=== PATIENT | female | born 1980 | race American Indian/Alaskan Native ===

== ENCOUNTER 2021-03-30 07:43 | Emergency (ER) | payer SELFPAY ==
[2021-03-30 08:24] VITALS: BP 129/84
[2021-03-30 09:07] LABS: Bilirubin,Urine NEG (Negative); Blood,Urine NEG (Negative); Color,Urine Yellow (Yellow); Protein,Urine <15 mg/dL mg/dL (Negative); Urobilinogen,Urine < 2.0 mg/dL (<2.0)
[2021-03-30 09:55] LABS: HCG Qualitative,Urine Negative (Negative)
--- NOTE | 2021-03-30 11:10 | Emergency Department Report ---
ED Female HPI - General Chief complaint: Vaginal Bleeding Stated complaint: ABD PAIN, BACK PAIN Time Seen by Provider: 03/30/21 10:45 Source: patient Mode of arrival: Ambulatory Limitations: No Limitations - History of Present Illness Initial comments: Patient is a 40-year-old female presents emergency room with complaints of lower abdominal discomfort during the last month. She states the pain radiates to her back. She has a history of endometriosis and uterine fibroids. She states that she has had bleeding four times this month. she states that she is not currently bleeding and has not had bleeding in 1 week. Patient states that she has a history of anemia and has not been taking her iron supplements and has had to be transfused in the past. Patient states that she relocated from [place] and has not set up primary care or WATER QUALITY TECHNICIAN. She states that she has not seen her previous WATER QUALITY TECHNICIAN in approximately a year. She is not currently on any hormones or Lupron. She denies any fever, nausea, vomiting, diarrhea, urinary symptoms, abnormal vaginal discharge. She also has a history of diabetes, hypertension, seizures. Allergy to penicillin and butorphanol. - Related Data Previous Rx's Medication Instructions Recorded Last Taken Type Acetaminophen/Codeine [Tylenol 1 tab PO Q6H PRN #10 tab 03/30/21 Unknown Rx /Codeine # 3 tab] Naproxen [EC-Naprosyn] 500 mg PO BID PRN #20 tablet. 03/30/21 Unknown Rx methOCARBAMOL [Robaxin TAB] 500 mg PO BID PRN #20 tab 03/30/21 Unknown Rx Allergies Allergy/AdvReac Type Severity Reaction Status Date / Time butorphanol [From Stadol] Allergy Anaphylaxis Verified 03/30/21 08:20 Penicillins Allergy Hives Verified 03/30/21 08:21 ED Review of Systems ROS: Stated complaint: ABD PAIN, BACK PAIN Other details as noted in HPI Comment: All other systems reviewed and negative ED Past Medical Hx - Past Medical History Previous Medical History?: Yes Hx Hypertension: Yes Hx Diabetes: Yes Hx Seizures: Yes Additional medical history: Endometriosis - Social History Smoking Status: Current Every Day Smoker Substance Use Type: None - Medications Home Medications: Home Medications Medication Instructions Recorded Confirmed Last Taken Type Acetaminophen/Codeine [Tylenol 1 tab PO Q6H PRN #10 tab 03/30/21 Unknown Rx /Codeine # 3 tab] Naproxen [EC-Naprosyn] 500 mg PO BID PRN #20 tablet. 03/30/21 Unknown Rx methOCARBAMOL [Robaxin TAB] 500 mg PO BID PRN #20 tab 03/30/21 Unknown Rx ED Physical Exam - General Limitations: No Limitations General appearance: alert, in no apparent distress - Head Head exam: Present: atraumatic, normocephalic - Eye Eye exam: Present: normal appearance - ENT ENT exam: Present: mucous membranes moist - Respiratory Respiratory exam: Present: normal lung sounds bilaterally. Absent: respiratory distress, wheezes, rales, rhonchi, stridor, chest wall tenderness, accessory muscle use, decreased breath sounds, prolonged expiratory - Cardiovascular Cardiovascular Exam: Present: regular rate, normal rhythm, normal heart sounds. Absent: systolic murmur, diastolic murmur, rubs, gallop - GI/Abdominal GI/Abdominal exam: Present: soft, tenderness (mild suprapubic ), normal bowel sounds. Absent: distended, guarding, rebound, rigid - Neurological Exam Neurological exam: Present: alert, oriented X3 - Psychiatric Psychiatric exam: Present: normal affect, normal mood - Skin Skin exam: Present: warm, dry, intact ED Course Vital Signs 03/30/21 08:24 Temperature 98.0 F Pulse Rate 81 Respiratory 16 Rate Blood Pressure 129/84 [Right] O2 Sat by Pulse 98 Oximetry ED Medical Decision Making - Lab Data Result diagrams: 03/30/21 11:11 03/30/21 11:11 Lab Results 03/30/21 03/30/21 03/30/21 Range/Units 11:11 11:11 11:11 WBC 11.3 H (4.5-11.0) K/mm3 RBC 4.45 (3.65-5.03) M/mm3 Hgb 11.0 (10.1-14.3) gm/dl Hct 35.0 (30.3-42.9) % MCV 79 (79-97) fl MCH 25 L (28-32) pg MCHC 32 (30-34) % RDW 18.4 H (13.2-15.2) % Plt Count 243 (140-440) K/mm3 Lymph % (Auto) 17.3 (13.4-35.0) % [place] % (Auto) 6.4 (0.0-7.3) % Eos % (Auto) 1.6 (0.0-4.3) % Baso % (Auto) 0.4 (0.0-1.8) % Lymph # (Auto) 2.0 (1.2-5.4) K/mm3 [place] # (Auto) 0.7 (0.0-0.8) K/mm3 Eos # (Auto) 0.2 (0.0-0.4) K/mm3 Baso # (Auto) 0.0 (0.0-0.1) K/mm3 Seg Neutrophils % 74.3 H (40.0-70.0) % Seg Neutrophils # 8.4 H (1.8-7.7) K/mm3 Sodium 133 L (137-145) mmol/L Potassium 4.4 (3.6-5.0) mmol/L Chloride 101.1 (98-107) mmol/L Carbon Dioxide 24 (22-30) mmol/L Anion Gap 12 mmol/L BUN 14 (7-17) mg/dL Creatinine 0.8 (0.6-1.2) mg/dL Estimated GFR > 60 ml/min BUN/Creatinine Ratio 18 % Glucose 93 (65-100) mg/dL Calcium 8.9 (8.4-10.2) mg/dL Total Bilirubin 0.20 (0.1-1.2) mg/dL AST 15 (5-40) units/L ALT 17 (7-56) units/L Alkaline Phosphatase 87 (35-129) units/L Total Protein 7.0 (6.3-8.2) g/dL Albumin 4.1 (3.9-5) g/dL Albumin/Globulin Ratio 1.4 % HCG, Qual Negative (Negative) Urine Color (Yellow) Urine Turbidity (Clear) Urine pH (5.0-7.0) Ur Specific [place] (1.003-1.030) Urine Protein (Negative) mg/dL Urine Glucose (UA) (Negative) mg/dL Urine Ketones (Negative) mg/dL Urine Blood (Negative) Urine Nitrite (Negative) Urine Bilirubin (Negative) Urine Urobilinogen (<2.0) mg/dL Ur Leukocyte Esterase (Negative) Urine WBC (Auto) (0.0-6.0) /HPF Urine RBC (Auto) (0.0-6.0) /HPF U Epithel Cells (Auto) (0-13.0) /HPF Urine HCG, Qual (Negative) 03/30/21 Range/Units Unknown WBC (4.5-11.0) K/mm3 RBC (3.65-5.03) M/mm3 Hgb (10.1-14.3) gm/dl Hct (30.3-42.9) % MCV (79-97) fl MCH (28-32) pg MCHC (30-34) % RDW (13.2-15.2) % Plt Count (140-440) K/mm3 Lymph % (Auto) (13.4-35.0) % [place] % (Auto) (0.0-7.3) % Eos % (Auto) (0.0-4.3) % Baso % (Auto) (0.0-1.8) % Lymph # (Auto) (1.2-5.4) K/mm3 [place] # (Auto) (0.0-0.8) K/mm3 Eos # (Auto) (0.0-0.4) K/mm3 Baso # (Auto) (0.0-0.1) K/mm3 Seg Neutrophils % (40.0-70.0) % Seg Neutrophils # (1.8-7.7) K/mm3 Sodium (137-145) mmol/L Potassium (3.6-5.0) mmol/L Chloride (98-107) mmol/L Carbon Dioxide (22-30) mmol/L Anion Gap mmol/L BUN (7-17) mg/dL Creatinine (0.6-1.2) mg/dL Estimated GFR ml/min BUN/Creatinine Ratio % Glucose (65-100) mg/dL Calcium (8.4-10.2) mg/dL Total Bilirubin (0.1-1.2) mg/dL AST (5-40) units/L ALT (7-56) units/L Alkaline Phosphatase (35-129) units/L Total Protein (6.3-8.2) g/dL Albumin (3.9-5) g/dL Albumin/Globulin Ratio % HCG, Qual (Negative) Urine Color Yellow (Yellow) Urine Turbidity Clear (Clear) Urine pH 5.0 (5.0-7.0) Ur Specific [place] 1.023 (1.003-1.030) Urine Protein <15 mg/dl (Negative) mg/dL Urine Glucose (UA) Neg (Negative) mg/dL Urine Ketones Neg (Negative) mg/dL Urine Blood Neg (Negative) Urine Nitrite Neg (Negative) Urine Bilirubin Neg (Negative) Urine Urobilinogen < 2.0 (<2.0) mg/dL Ur Leukocyte Esterase Tr (Negative) Urine WBC (Auto) 5.0 (0.0-6.0) /HPF Urine RBC (Auto) 2.0 (0.0-6.0) /HPF U Epithel Cells (Auto) 1.0 (0-13.0) /HPF Urine HCG, Qual Negative (Negative) - Medical Decision Making Patient is a 40-year-old female presents emergency room with complaints of lower abdominal discomfort during the last month. She states the pain radiates to her back. She has a history of endometriosis and uterine fibroids. She states that she has had bleeding four times this month. she states that she is not currently bleeding and has not had bleeding in 1 week. Patient states that she has a history of anemia and has not been taking her iron supplements and has had to be transfused in the past. Patient states that she relocated from [place] and has not set up primary care or WATER QUALITY TECHNICIAN. She states that she has not seen her previous WATER QUALITY TECHNICIAN in approximately a year. She is not currently on any hormones or Lupron. She denies any fever, nausea, vomiting, diarrhea, urinary s ymptoms, abnormal vaginal discharge. She also has a history of diabetes, hypertension, seizures. Allergy to penicillin and butorphanol. Vitals are normal. On exam patient has mild suprapubic abdominal tenderness palpation, no guarding, no rebound, no rigidity, normal bowel sounds, no peritoneal signs. Labs are stable. H&H is normal. hCG is negative. UA is within normal limits. Patient given prescription for medication. Patient will be referred to outpatient primary care and WATER QUALITY TECHNICIAN. Discussed the importance of follow-up regarding her abnormal menstrual cycles. advised pt Please take medication as prescribed. Follow-up with a primary care doctor. Follow-up with WATER QUALITY TECHNICIAN. Return to emergency room for any new or symptoms. Critical care attestation.: If time is entered above; I have spent that time in minutes in the direct care of this critically ill patient, excluding procedure time. ED Disposition Clinical Impression: Abnormal menstrual cycle Abdominal pain Qualifiers: Abdominal location: lower abdomen, unspecified Qualified Code(s): R10.30 - Lower abdominal pain, unspecified Back pain Qualifiers: Back pain location: low back pain Chronicity: acute Back pain laterality: bilateral Sciatica presence: without sciatica Qualified Code(s): M54.5 - Low back pain Disposition: TO HOME OR SELFCARE Is pt being admited?: No Does the pt Need Aspirin: No Condition: Stable Instructions: Dysfunctional Uterine Bleeding Additional Instructions: Please take medication as prescribed. Follow-up with a primary care doctor. Follow-up with WATER QUALITY TECHNICIAN. Return to emergency room for any new or symptoms. Prescriptions: Naproxen [EC-Naprosyn] 500 mg PO BID PRN #20 tablet. PRN Reason: Pain, Moderate (4-6) methOCARBAMOL [Robaxin TAB] 500 mg PO BID PRN #20 tab PRN Reason: muscle spasm/pain Acetaminophen/Codeine [Tylenol /Codeine # 3 tab] 1 tab PO Q6H PRN #10 tab PRN Reason: Pain , Severe (7-10) Referrals: [facility] [Provider Group] - 2-3 Days PAUL ALVAREZ MD [Staff Physician] - 2-3 Days Time of Disposition: 12:01 Print Language: LATVIAN
[2021-03-30 11:44] LABS: Basophils % (Auto) 0.4 % (0.0-1.8); Eosinophils # (Auto) 0.2 K/mm3 (0.0-0.4); Eosinophils % (Auto) 1.6 % (0.0-4.3); Lymphocytes % (Auto) 17.3 % (13.4-35.0); Mean Corpuscular HGB Conc 32 % (30-34); Mean Corpuscular Volume 79 fl (79-97); Monocytes # (Auto) 0.7 K/mm3 (0.0-0.8); Monocytes % (Auto) 6.4 % (0.0-7.3); Platelet Count 243 K/mm3 (140-440); Red Blood Count 4.45 M/mm3 (3.65-5.03); Red Cell Distribution Width 18.4 % (13.2-15.2)
[2021-03-30 12:00] LABS: Alanine Aminotransferase 17 units/L (7-56); Albumin 4.1 g/dL (3.9-5); BUN/Creatinine Ratio 18; Blood Urea Nitrogen 14 mg/dL (7-17); Calcium 8.9 mg/dL (8.4-10.2); Hemolysis Index 1
== END 2021-03-30 12:18 | disposition home or self-care (01) ==
LOC: ED 07:43
DX: N92.1 Excessive and frequent menstruation with irregular cycle (principal); M54.5 Low back pain; I10 Essential (primary) hypertension; E11.9 Type 2 diabetes mellitus without complications; F17.200 Nicotine dependence, unspecified, uncomplicated; Z86.69 Personal history of other diseases of the nervous system and sense organs; Z88.0 Allergy status to penicillin; Z88.8 Allergy status to other drugs, medicaments and biological substances; Z79.899 Other long term (current) drug therapy
CPT/HCPCS: 36415; 80053; 81001; 81025; 84703; 85025; 99283

== ENCOUNTER 2022-03-29 01:36 | Emergency (ER) | payer MEDICAID, OTHER ==
--- NOTE | 2022-03-29 11:30 | Emergency Department Report ---
ED General Adult HPI - General Chief complaint: Chest Pain Stated complaint: HIGH BP/CHEST PAIN Time Seen by Provider: 03/29/22 11:02 Source: patient Mode of arrival: Ambulatory Limitations: No Limitations - History of Present Illness Initial comments: 41 yo F with seizure, hypertension, asthma and endometriosis who presents with chest palpitation, chest pressure and mild headache that started this morning while at work. Patient worked overnight. Patient also reported that she ran out of her medication about a week ago. She moved down here from [place] and trying to establish with primary doctor. She mentioned that her Medicaid has not been transferred to [place] yet. Patient denies any other modifying or associated factors. Severity scale (0 -10): 9 - Related Data Previous Rx's Medication Instructions Recorded Last Taken Type Acetaminophen/Codeine [Tylenol 1 tab PO Q6H PRN #10 tab 03/30/21 Unknown Rx /Codeine # 3 tab] Naproxen [EC-Naprosyn] 500 mg PO BID PRN #20 tablet. 03/30/21 Unknown Rx methOCARBAMOL [Robaxin TAB] 500 mg PO BID PRN #20 tab 03/30/21 Unknown Rx Potassium Chloride [K-Dur] 20 meq PO DAILY 5 Days #5 tablet 03/29/22 Unknown Rx amLODIPine 10 mg PO DAILY 30 Days #30 tab 03/29/22 Unknown Rx levETIRAcetam [Keppra TAB] 500 mg PO DAILY 30 Days #30 tablet 03/29/22 Unknown Rx Allergies Allergy/AdvReac Type Severity Reaction Status Date / Time butorphanol [From Stadol] Allergy Anaphylaxis Verified 03/30/21 08:20 Penicillins Allergy Hives Verified 03/30/21 08:21 ED Review of Systems ROS: Stated complaint: HIGH BP/CHEST PAIN Other details as noted in HPI Comment: All other systems reviewed and negative Cardiovascular: chest pain, palpitations ED Past Medical Hx - Past Medical History Hx Hypertension: Yes Hx Diabetes: Yes Hx Seizures: Yes Additional medical history: Endometriosis - Social History Smoking Status: Unknown if ever smoked - Medications Home Medications: Home Medications Medication Instructions Recorded Confirmed Last Taken Type Acetaminophen/Codeine [Tylenol 1 tab PO Q6H PRN #10 tab 03/30/21 Unknown Rx /Codeine # 3 tab] Naproxen [EC-Naprosyn] 500 mg PO BID PRN #20 tablet. 03/30/21 Unknown Rx methOCARBAMOL [Robaxin TAB] 500 mg PO BID PRN #20 tab 03/30/21 Unknown Rx Potassium Chloride [K-Dur] 20 meq PO DAILY 5 Days #5 tablet 03/29/22 Unknown Rx amLODIPine 10 mg PO DAILY 30 Days #30 tab 03/29/22 Unknown Rx levETIRAcetam [Keppra TAB] 500 mg PO DAILY 30 Days #30 tablet 03/29/22 Unknown Rx ED Physical Exam - General Limitations: No Limitations General appearance: alert, in no apparent distress - Head Head exam: Present: normal inspection - Eye Eye exam: Present: normal appearance Pupils: Present: normal accommodation - ENT ENT exam: Present: normal exam, normal orophraynx, mucous membranes moist - Neck Neck exam: Present: normal inspection, full ROM. Absent: tenderness - Respiratory Respiratory exam: Present: normal lung sounds bilaterally. Absent: respiratory distress, accessory muscle use - Cardiovascular Cardiovascular Exam: Present: regular rate, normal rhythm, normal heart sounds - GI/Abdominal GI/Abdominal exam: Present: soft, normal bowel sounds. Absent: distended, tenderness - Extremities Exam Extremities exam: Present: normal inspection - Back Exam Back exam: Present: normal inspection. Absent: tenderness - Neurological Exam Neurological exam: Present: alert, oriented X3 - Psychiatric Psychiatric exam: Present: normal affect, normal mood - Skin Skin exam: Present: warm, intact ED Course Vital Signs 03/29/22 03/29/22 03/29/22 02:26 09:35 09:45 Temperature 97.9 F Pulse Rate 68 67 58 L Respiratory 16 18 23 Rate Blood Pressure 172/108 181/103 Blood Pressure 172/108 181/103 [Right] O2 Sat by Pulse 100 100 100 Oximetry 03/29/22 03/29/22 03/29/22 10:01 10:15 10:31 Temperature Pulse Rate 62 60 66 Respiratory 10 L 10 L 16 Rate Blood Pressure 180/107 161/70 154/104 Blood Pressure [Right] O2 Sat by Pulse 100 100 100 Oximetry 03/29/22 03/29/22 03/29/22 10:45 11:01 11:15 Temperature Pulse Rate 56 L 70 65 Respiratory 9 L 14 15 Rate Blood Pressure 168/92 172/101 152/81 Blood Pressure [Right] O2 Sat by Pulse 100 100 100 Oximetry 03/29/22 03/29/22 03/29/22 11:30 11:59 12:01 Temperature Pulse Rate 69 74 69 Respiratory 13 14 Rate Blood Pressure 175/95 175/95 172/103 Blood Pressure [Right] O2 Sat by Pulse 100 97 98 Oximetry 03/29/22 03/29/22 03/29/22 12:15 12:31 12:45 Temperature Pulse Rate 65 67 72 Respiratory 11 L 9 L 15 Rate Blood Pressure 172/103 154/105 193/138 Blood Pressure [Right] O2 Sat by Pulse 99 97 97 Oximetry 03/29/22 03/29/22 13:01 13:15 Temperature Pulse Rate 69 58 L Respiratory 18 14 Rate Blood Pressure 187/133 155/83 Blood Pressure [Right] O2 Sat by Pulse 97 100 Oximetry - Reevaluation(s) Reevaluation #1: 03/29/22 11:28 here chest pain and palpitation and headache-- will order routine labs to rule out infectious process or electrolytes imbalance as a stressor-- 03/29/22 11:31 Given keppra 1 g to stabilize her seizure and amlodipine 10 mg for blood pressure--we will continue to monitor Reevaluation #2: 03/29/22 13:45 noted with mild hypokalemia given 20 mEq PO x 1-- and with low H&H but not acute since patient has history chronic anemia. ED Medical Decision Making - Lab Data Result diagrams: 03/29/22 12:09 03/29/22 12:09 - EKG Data -: EKG Interpreted by Me - EKG Data 03/29/22 11:34 Noted with sinus arrhythmia at a rate of 59 bpm with possible left ventricular hypertrophy but no ST depression or elevation in this abnormal ECG. - Medical Decision Making this patient hypertensive urgency is likely as a result of her non compliant with her antihypertensive-- Critical care attestation.: If time is entered above; I have spent that time in minutes in the direct care of this critically ill patient, excluding procedure time. ED Disposition Clinical Impression: Hypertensive urgency Chest pain Qualifiers: Chest pain type: unspecified Qualified Code(s): R07.9 - Chest pain, unspecified Anemia Qualifiers: Anemia type: unspecified type Qualified Code(s): D64.9 - Anemia, unspecified Disposition: 01 HOME / SELF CARE / HOMELESS Is pt being admited?: No Does the pt Need Aspirin: No Condition: Stable Instructions: Nonspecific Chest Pain, Adult, [id number], Hypertension, Adult, [id number], Preventing Hypertension Additional Instructions: It is very important that you take your medication as prescribed to continue to help your symptoms Call and schedule follow-up with your primary doctor that is assigned to you in the next 3 to 5 days for progress Please do not hesitate to call or return to emergency if your symptoms worsen Prescriptions: amLODIPine 10 mg PO DAILY 30 Days #30 tab Potassium Chloride [K-Dur] 20 meq PO DAILY 5 Days #5 tablet levETIRAcetam [Keppra TAB] 500 mg PO DAILY 30 Days #30 tablet Referrals: TONY CORBETT MD [Primary Care Provider] - 3-5 Days Time of Disposition: 13:50
--- NOTE | 2022-03-29 11:57 | XRay Report ---
XR chest routine 2V INDICATION / CLINICAL INFORMATION: Chest Pain. COMPARISON: None available. FINDINGS: SUPPORT DEVICES: None. HEART /PULMONARY VASCULATURE: No significant abnormality. LUNGS / PLEURA: No significant pulmonary or pleural abnormality. No pneumothorax. ADDITIONAL FINDINGS: No significant additional findings. IMPRESSION: 1. No acute findings. Signer Name: Avinash Hill MD Signed: 03/29/2022 11:50 AM Workstation Name: [employer]
[2022-03-29] MEDS ORDERED: fentaNYL 100 MCG/2 ML INJ IV ONE (12:13)
[2022-03-29 12:43] LABS: Basophils # (Auto) 0.1 K/mm3 (0.0-0.1); Basophils % (Auto) 0.5 % (0.0-1.8); Eosinophils # (Auto) 0.2 K/mm3 (0.0-0.4); Eosinophils % (Auto) 2.2 % (0.0-4.3); Hematocrit 27.5 % (30.3-42.9); Hemoglobin 8.5 gm/dl (10.1-14.3); Lymphocytes # (Auto) 2.5 K/mm3 (1.2-5.4); Mean Corpuscular HGB Conc 31 % (30-34); Mean Corpuscular Volume 73 fl (79-97); Monocytes # (Auto) 0.6 K/mm3 (0.0-0.8); Platelet Count 302 K/mm3 (140-440); Red Blood Count 3.77 M/mm3 (3.65-5.03)
[2022-03-29 12:52] LABS: INR 1.02 (0.87-1.13); Partial Thromboplastin Time 33.8 Sec. (24.2-36.6)
[2022-03-29 13:07] LABS: Alanine Aminotransferase 12 units/L (7-56); Albumin 3.8 g/dL (3.9-5); Blood Urea Nitrogen 10 mg/dL (7-17); Calcium 8.6 mg/dL (8.4-10.2); Hemolysis Index 0
[2022-03-29 13:12] LABS: BUN/Creatinine Ratio 14; Free T4 (Free Thyroxine) 1.12 ng/dL (0.76-1.46)
[2022-03-29] MEDS ORDERED: levETIRAcetam 500 MG TAB PO ONE (13:44)
[2022-03-29] MEDS ORDERED: POTASSIUM CHLORIDE ER 20 MEQ TAB PO ONE (13:47)
[2022-03-29 14:04] VITALS: BP 162/79
--- NOTE | 2022-03-29 16:49 | Electrocardiograph Report ---
[facility] Test Date: 2022-03-29 Test Time: 02:33:47 Pat Name: YAW IVAN Department: Room: Gender: F Weight Training Instructor: DELVIS : 1980 Requested By: ALEXIS URBINA Order Number: [id number] Reading MD: Rosmery Grijalva Measurements Intervals [place] Rate: 59 P: 35 AR: 148 QRS: 19 QRSD: 84 T: 63 QT: 434 QTc: 429 Interpretive Statements Sinus arrhythmia Consider left ventricular hypertrophy No previous ECG available for comparison Electronically Signed On 03-29-2022 16:49:13 EDT by Rosmery Grijalva
== END 2022-03-29 14:05 | disposition home or self-care (01) ==
LOC: ED 01:36
DX: R07.9 Chest pain, unspecified (principal); D64.9 Anemia, unspecified; I16.0 Hypertensive urgency; I10 Essential (primary) hypertension; E11.9 Type 2 diabetes mellitus without complications; R56.9 Unspecified convulsions; N80.8 Other endometriosis; Z88.0 Allergy status to penicillin; Z88.8 Allergy status to other drugs, medicaments and biological substances
CPT/HCPCS: 36415; 71046; 80053; 83880; 84439; 84443; 84484; 85025; 85610; 85730; 93005; 96374; 99284; J3010